=== PATIENT | male | born 2000 | race African-American/Black ===

== ENCOUNTER 2025-07-05 14:03 | Emergency (ER) | payer SELFPAY ==
[2025-07-05 14:09] VITALS: PULSE 92; RESP 16; TEMP 36.4; O2SAT 100
--- NOTE | 2025-07-05 14:22 | ED_ITS ---
HPI - General Adult General Chief complaint: Environmental Exposure Stated complaint: body cramps Time Seen by Provider: 07/05/25 14:16 Source: patient Mode of arrival: ambulatory Limitations: no limitations History of Present Illness HPI narrative: This is a 25-year-old male that presents to the emergency department for muscle cramping. Reports he has been working out side today. Presents for possible dehydration. Related Data Allergies Allergy/AdvReac Type Severity Reaction Status Date / Time No Known Allergies Allergy Verified 07/05/25 14:13 Review of Systems 2 Review of Systems: All systems reviewed & are unremarkable except as noted in HPI and below Exam 2 Narrative: GENERAL: Well-appearing, well-nourished, and in no acute distress. HEAD: Normocephalic, atraumatic. EYES: EOMI. ENT: Nares clear, no rhinorrhea or epistaxis. Mucous membranes moist. CHEST: Clear to auscultation. No respiratory distress. No wheezes rales or rhonchi HEART: Regular rate and rhythm. No murmur heard. Normal peripheral pulses. EXTREMITIES: Normal range of motion. No edema. SKIN: Warm, dry, no rash. NEURO: No focal deficits. Alert and oriented x3. PSYCH: Normal mood and affect Course Course Emergency Course: Patient updated on his workup. Reports feeling much better Vital Signs Vital signs: Vital Signs Temperature 97.5 F L 07/05/25 14:09 Pulse Rate 92 07/05/25 14:09 Respiratory Rate 16 07/05/25 14:09 Pulse Oximetry 100 07/05/25 14:09 Oxygen Delivery Room Air 07/05/25 14:09 Temperature 97.5 F L 07/05/25 14:09 Pulse Rate 81 07/05/25 15:25 Respiratory Rate 20 07/05/25 15:25 Blood Pressure 143/85 H 07/05/25 15:25 Pulse Oximetry 100 07/05/25 15:25 Oxygen Delivery Room Air 07/05/25 14:24 Medical Decision Making [facility] Narrative Medical decision making narrative: Patient presents the emergency department for dehydration. Patient was working outside all day today. His vitals are stable. Cbc without concerning findings. Metabolic panel does show evidence of dehydration, he was hydrated with 2 L of IV fluids. Repeat metabolic panel with much improvement. Patient feeling well at this time. Follow-up with PCP Differential Diagnosis Differential Diagnosis: Dehydration, electrolyte derangement, rhabdomyolysis Vital Signs Vital Signs: Vital Signs Temperature 97.5 F L 07/05/25 14:09 Pulse Rate 92 07/05/25 14:09 Respiratory Rate 16 07/05/25 14:09 Pulse Oximetry 100 07/05/25 14:09 Oxygen Delivery Room Air 07/05/25 14:09 Temperature 97.5 F L 07/05/25 14:09 Pulse Rate 81 07/05/25 15:25 Respiratory Rate 20 07/05/25 15:25 Blood Pressure 143/85 H 07/05/25 15:25 Pulse Oximetry 100 07/05/25 15:25 Oxygen Delivery Room Air 07/05/25 14:24 Lab Data 07/05/25 14:27 07/05/25 16:42 Labs: Lab Results 07/05/25 07/05/25 07/05/25 Range/Units 14:27 15:52 16:42 WBC 7.3 (4.5-10.0) K/mm3 RBC 5.71 (4.6-6.20) M/mm3 Hgb 16.9 (14.0-18.0) g/dL Hct 50.4 (42.0-52.0) % MCV 88.3 (80-100) fl MCH 29.6 (26-34) pg MCHC 33.5 (32-36) g/dl RDW 12.5 (11.5-14.5) % Plt Count 206 (150-375) k/mm3 MPV 9.2 (7.4-10.4) fl Immature Gran % (Auto) 0.3 (0-0.5) % Neut % (Auto) 56.5 (45.5-73.1) % Lymph % (Auto) 33.7 (18.3-44.2) % Mitchell % (Auto) 7.8 (2.6-8.5) % Eos % (Auto) 0.7 (0-4.4) % Baso % (Auto) 1.0 (0.2-1.2) % Lymph # (Auto) 2.45 (0.9-3.2) K/mm3 Mitchell # (Auto) 0.6 (0.1-0.6) K/mm3 Eos # (Auto) 0.1 (0-0.3) K/mm3 Baso # (Auto) 0.1 (0.0-0.1) K/mm3 Abs Immat Gran (auto) 0.02 (0.00-0.031) K/mm3 Absolute Neuts (auto) 4.1 (1.3-6.7) K/mm3 Absolute Nucleated RBC 0.000 (0.0-0.012) K/mm3 Nucleated RBC % 0.0 (0.0-0.2) % Sodium 138 134 L (137-145) mmol/L Potassium 4.2 4.5 (3.4-5.0) mmol/L Chloride 97 L 103 (98-107) mmol/L Carbon Dioxide 25 23 (22-30) mmol/L Anion Gap 16 H 8 (4-12) mmol/L BUN 17 14 (9-20) mg/dL Creatinine 1.65 H 1.17 (0.7-1.3) mg/dL Estim Creat Clear Calc 59 82 ml/min Estimated GFR 51 L > 60 (59 - ) Glucose 63 L 76 (65-110) mg/dL Calcium 10.7 H 9.5 (8.4-10.2) mg/dL Total Bilirubin 0.9 (0.2-1.3) mg/dL AST 45 (17-59) U/L ALT 35 (6-50) U/L Alkaline Phosphatase 63 (38-126) U/L Total Creatine Kinase 411 H (55-170) U/L Total Protein 10.1 H (6.3-8.2) g/dL Albumin 5.6 H (3.5-5.1) g/dL Urine Color Yellow (Yellow) Urine Appearance Clear (Clear) Urine pH 5.5 (5.0-9.0) Ur Specific [place] 1.026 (1.001-1.035) Urine Protein 1+ H (Negative) mg/dL Urine Glucose (UA) Negative (Negative) mg/dL Urine Ketones Trace H (Negative) mg/dL Ur Blood (Man) Negative (Negative) Urine Nitrate Negative (Negative) Urine Bilirubin Negative (Negative) Urine Urobilinogen 1.0 (<2.0) mg/dL Add Ur Microanalysis Reviewed Leukocyte Esterase Rfl Negative (Negative) ISAI/UL Urine RBC 11-20 H (0-2) /hpf Urine WBC 0-5 (0-3) /hpf Ur Squamous Epith Cells None seen (Few) /hpf Urine Bacteria None seen /hpf Urine Casts >20 Hyaline Casts Present (None) /lpf Critical Care Time Critical Care Time Critical Care Time: No Discharge Plan Discharge Clinical Impression: Dehydration Patient Disposition: Home Condition: Improved Instructions: Dehydration (ED) Additional Instructions: Return to the emergency department if you experience fever, chest pain, shortness of breath, abdominal pain with nausea and vomiting, weakness, numbness, or any other symptoms that are concerning to you. Remain well hydrated Follow up with primary care doctor Patient Language: Welsh Follow-up/Referrals: Oscar Ng MD [Physician, Family Practice] PHYSICIAN,FINANCIAL ECONOMIST [Primary Care Provider, Internal Medicine]
[2025-07-05 14:24] VITALS: BP 156/78; PULSE 94; RESP 20; O2SAT 100
[2025-07-05] MEDS: SODIUM CHLORIDE 0.9% IV 1,000 ML 999 ML IV CONT (14:25)
[2025-07-05 14:36] LABS: Hematocrit 50.4 % (42.0-52.0); Hemoglobin 16.9 g/dL (14.0-18.0); Immature Granulocyte Percent A 0.3 % (0-0.5); Lymphocytes Absolute Auto 2.45 K/mm3 (0.9-3.2); Mean Corpuscular HGB Conc 33.5 g/dl (32-36); Mean Corpuscular Hemoglobin 29.6 pg (26-34); Mean Corpuscular Volume 88.3 fl (80-100); Nucleated Red Blood Cells Absolute Auto 0.000 K/mm3 (0.0-0.012); Nucleated Red Blood Cells Perc 0.0 % (0.0-0.2); Platelet Count Result 206 k/mm3 (150-375); Red Blood Count 5.71 M/mm3 (4.6-6.20); White Blood Count 7.3 K/mm3 (4.5-10.0)
--- NOTE | 2025-07-05 14:54 | PC.NURSE ---
patient has urinal at bedside and is aware we need a urine sample.
[2025-07-05 14:55] LABS: Alanine Aminotransferase 35 U/L (6-50); Albumin Level 5.6 g/dL (3.5-5.1); Alkaline Phosphatase 63 U/L (38-126); Anion Gap 16 mmol/L (4-12); Aspartate Amino Transferase 45 U/L (17-59); Bilirubin,Total 0.9 mg/dL (0.2-1.3); Blood Urea Nitrogen 17 mg/dL (9-20); Calcium 10.7 mg/dL (8.4-10.2); Carbon Dioxide 25 mmol/L (22-30); Chloride 97 mmol/L (98-107); Creatine Kinase 411 U/L (55-170); Estimated CRCL calculation 59 ml/min; Estimated Glomerular Filt Rate 51; Glucose 63 mg/dL (65-110); Potassium 4.2 mmol/L (3.4-5.0); Sodium 138 mmol/L (137-145); Total Protein 10.1 g/dL (6.3-8.2)
[2025-07-05] MEDS: LACTATED RINGERS 1,000 ML 999 ML IV CONT (15:24)
[2025-07-05 15:25] VITALS: BP 143/85; PULSE 81; RESP 20; O2SAT 100
--- OUTSIDE RECORDS SUMMARY | 2025-07-05 15:42 | XMS_ITS | Clinical Summary ---
Author Organization [facility] Address [address] [place] [address] Care Team Providers Care Deliverer Food Name Role Phone No, Physician Primary Care Provider [phone] Allergies No known active allergies Social History Tobacco Use Types Packs/Day Years Used Date Smoking Tobacco: Never Assessed Personal Safety Answer Date Recorded Getting School Help Needed Not on file 01/02 Sex and Gender Information Value Date Recorded Sex Assigned at Not on file Legal Sex Male 5:31 PM SOFTWARE CLERK Gender Identity Not on file Sexual Orientation Not on file Last Filed Vital Signs Vital Sign Reading Time Taken Comments Blood Pressure 146/79 12/18/2022 10:15 PM SOFTWARE CLERK Pulse 92 12/18/2022 11:00 PM SOFTWARE CLERK Temperature 37.5 C (99.5 F) 12/18/2022 5:47 PM SOFTWARE CLERK Respiratory Rate 21 12/18/2022 11:00 PM SOFTWARE CLERK Oxygen Saturation 98% 12/18/2022 11:00 PM SOFTWARE CLERK Inhaled Oxygen Concentration - - Weight 67.1 kg (148 lb) 12/18/2022 5:47 PM SOFTWARE CLERK Height - - Body Mass Index - - Plan of Treatment Health Maintenance Due Date Last Done Comments Depression Screening 1999 Hepatitis C Screening 1999 DTaP/Tdap/Td Vaccine (1 - Tdap) 2010 Varicella Vaccines (1 of 2 - 13+ 2-dose series) 2012 HPV Vaccines (1 - Male 3-dos e series) 2014 Hepatitis B Screening 2017 Regular Well Visit/Exam 18-64 2017 Influenza Vaccine (#1) 2025 10/19/2013 Pneumococcal vaccine <65 Aged Out No longer eligible based on patient's age to complete this topic Insurance [employer] Care Teams Deliverer Food Relationship Specialty Start Date End Date No, Physician PCP - General 12/18/22
[2025-07-05 16:09] LABS: Add Urine Microscopic? YES; Appearance Urine Clear (Clear); Glucose Urine UA Negative (Negative); Leukocyte Esterase Ur Negative LEU/UL (Negative); Need Manual Microscopic Reviewed; Nitrate Urine Negative (Negative); Non Pathogenic Casts >20; Specific Grav Ur 1.026 (1.001-1.035)
[2025-07-05 17:11] LABS: Anion Gap 8 mmol/L (4-12); Blood Urea Nitrogen 14 mg/dL (9-20); Calcium 9.5 mg/dL (8.4-10.2); Carbon Dioxide 23 mmol/L (22-30); Chloride 103 mmol/L (98-107); Estimated CRCL calculation 82 ml/min; Estimated Glomerular Filt Rate > 60; Glucose 76 mg/dL (65-110); Potassium 4.5 mmol/L (3.4-5.0); Sodium 134 mmol/L (137-145)
[2025-07-05 17:42] VITALS: BP 121/61; PULSE 74; RESP 18; O2SAT 100
== END 2025-07-05 17:44 | disposition home or self-care (01) ==
PROVIDERS: Emergency Provider Physician Assistant
DX: E86.0 Dehydration (principal)
CPT/HCPCS: 36415; 80048; 80053; 81001; 82550; 85025; 96360; 99283; J7030; J7120